=== PATIENT | female | born 1990 | race Caucasian/White ===

== ENCOUNTER 2019-04-25 12:10 | Emergency (ER) | payer BC, MEDICAID ==
[~2019-04-25] VITALS: Ht 175.3 cm; Wt 168.8 kg
[~2019-04-25 12:10] MED LIST: ONDA4TAB10 SL; SULF1TAB24 PO; TRAM-48 PO
[2019-04-25] MEDS ORDERED: IV NORMAL SALINE 1,000ML 1,000 ML IV SCH (12:26)
[2019-04-25] MEDS ORDERED: KETOROLAC 30 MG/ML VIAL. IVP ONE (12:30)
[2019-04-25] MEDS ORDERED: KETOROLAC 30 MG/ML VIAL. ONE (12:31)
--- NOTE | 2019-04-25 12:36 | PHYS DOC ---
Past History Past Medical History: No Pertinent History Past Surgical History: Other Additional Past Surgical Histo: bariactric [id number] 02/2019 Alcohol Use: None Drug Use: None Adult General Chief Complaint Chief Complaint: FLANK PAIN HPI HPI Patient is a 28-year-old female who presents to the emergency department for evaluation. She states that she developed sudden onset of right flank pain about 30 minutes prior to arrival, with some nausea and vomiting. 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 She has no prior history of similar symptoms or history of renal stones. Her LMP was the middle of March and denies possibility of . She has not had any vaginal discharge, dysuria, or urinary frequency or hesitancy. There are no alleviating or exacerbating factors to her symptoms. Review of Systems Review of Systems Constitutional: Denies fever or chills [] Eyes: Denies change in visual acuity, redness, or eye pain [] HENT: Denies nasal congestion or sore throat [] Respiratory: Denies cough or shortness of breath [] Cardiovascular: No additional information not addressed in HPI [] GI: Denies abdominal pain, bloody stools or diarrhea [] : Denies dysuria or vaginal bleeding or discharge. Reports right flank pain and hematuria [] Musculoskeletal: Denies back pain or joint pain [] Integument: Denies rash or skin lesions [] Neurologic: Denies headache, focal weakness or sensory changes [] Endocrine: Denies polyuria or polydipsia [] All other systems were reviewed and found to be within normal limits, except as documented in this note. Current Medications Current Medications Current Medications Medications (Trade) Dose Ordered Sig/Luz Marina Start Time Stop Time Status Last Admin Dose Admin Ketorolac Tromethamine (Toradol 30mg Vial) 30 mg STK-MED ONCE 04/25/19 12:31 04/25/19 12:31 DC Sodium Chloride 1,000 ml @ 1,000 mls/hr Q1H 04/25/19 12:26 04/25/19 13:25 Allergies Allergies Allergies Coded Allergies Type Severity Reaction Last Updated Verified No Known Drug Allergies 04/25/19 No Physical Exam Physical Exam PHYSICAL EXAM: CONSTITUTIONAL: Well developed, well nourished HEAD: normocephalic, atraumatic EENT: PERRL, EOMI. Conjunctivae normal color, sclerae non-icteric; moist mucous membranes. NECK: Supple, non-tender; no meningismus. LUNGS: Lungs CTA, breathing even and unlabored. Normal air movement. HEART: Regular rate and rhythm, no murmur CHEST: No deformity; non-tender ABDOMEN: The abdomen is soft, and non-tender, no masses or bruits. There are well-healed surgical scars present on the abdomen. EXTREM: Normal ROM; no deformity, no calf tenderness. Normal pulses palpable in all extremities. There is no pedal edema. SKIN: No rash; no diaphoresis NEURO: Alert; normal speech and cognition; CN's grossly intact; strength grossly intact without focal deficit. BACK: There is moderate right-sided CVA tenderness to palpation. There is no left-sided CVA TTP. Current Patient Data Vital Signs Vital Signs Date Time Temp Pulse Resp B/P (MAP) Pulse Ox O2 Delivery O2 Flow Rate FiO2 04/25/19 12:20 98.4 112 24 98 Room Air Lab Results Laboratory Tests Test 04/25/19 12:49 White Blood Count 9.1 x10^3/uL Red Blood Count 4.85 x10^6/uL Hemoglobin 14.7 g/dL Hematocrit 43.4 % Mean Corpuscular Volume 90 fL Mean Corpuscular Hemoglobin 30 pg Mean Corpuscular Hemoglobin Concent 34 g/dL Red Cell Distribution Width 14.5 % Platelet Count 252 x10^3/uL Neutrophils (%) (Auto) 69 % Lymphocytes (%) (Auto) 22 % Monocytes (%) (Auto) 7 % Eosinophils (%) (Auto) 1 % Basophils (%) (Auto) 1 % Neutrophils # (Auto) 6.3 x10^3uL Lymphocytes # (Auto) 2.0 x10^3/uL Monocytes # (Auto) 0.7 x10^3/uL Eosinophils # (Auto) 0.1 x10^3/uL Basophils # (Auto) 0.0 x10^3/uL Sodium Level 142 mmol/L Potassium Level 3.1 mmol/L Chloride Level 102 mmol/L Carbon Dioxide Level 24 mmol/L Anion Gap 16 Blood Urea Nitrogen 8 mg/dL Creatinine 0.7 mg/dL Estimated GFR (Cockcroft-Gault) 101.1 BUN/Creatinine Ratio 11 Glucose Level 95 mg/dL Calcium Level 9.3 mg/dL Total Bilirubin 0.6 mg/dL Aspartate Amino Transf (AST/SGOT) 20 U/L Alanine Aminotransferase (ALT/SGPT) 44 U/L Alkaline Phosphatase 83 U/L Total Protein 8.0 g/dL Albumin 3.7 g/dL Albumin/Globulin Ratio 0.9 Serum Test, Qualitative Negative Current Medications Medications (Trade) Dose Ordered Sig/Luz Marina Route PRN Reason Start Time Stop Time Status Last Admin Dose Admin Sodium Chloride 1,000 ml @ 1,000 mls/hr Q1H IV 04/25/19 12:26 04/25/19 13:25 DC 04/25/19 12:57 Ketorolac Tromethamine (Toradol 30mg Vial) 30 mg 1X ONCE IVP 04/25/19 12:30 04/25/19 12:31 DC 04/25/19 13:02 Ketorolac Tromethamine (Toradol 30mg Vial) 30 mg STK-MED ONCE .ROUTE 04/25/19 12:31 04/25/19 12:31 DC Ondansetron HCl (Zofran) 4 mg 1X ONCE IVP 04/25/19 13:15 04/25/19 13:16 DC 04/25/19 13:03 EKG EKG [] Radiology/Procedures Radiology/Procedures PROCEDURE: CT ABDOMEN PELVIS WO CONTRAST EXAM: Abdomen and pelvis CT without intravenous contrast. HISTORY: Right flank pain. Bismark-en-Y 5 days ago. TECHNIQUE: Computed tomographic images of the abdomen and pelvis were obtained without contrast. Multiplanar reformatting was performed. *One or more of the following individualized dose reduction techniques were utilized for this examination: 1. Automated exposure control. 2. Adjustment of the mA and/or kV according to patient size. 3. Use of iterative reconstruction technique. COMPARISON: None. FINDINGS: Evaluation of the lower thorax demonstrates a lobulated hypodense lesion within the right anterior right cardiophrenic angle measuring 6.0 cm. No suspicious hepatic lesion is seen. The gallbladder, pancreas and adrenal glands are unremarkable. There is mild splenomegaly. There are postoperative changes involving the stomach and small bowel consistent with a Bismark-en-Y procedure. There is slight wall thickening and surrounding fatty stranding at the level of the bowel anastomoses, likely due to relative recent postoperative changes. No dehiscence or abscess is seen. There is mild right hydronephrosis and hydroureter extending to a suspected 1 mm stone at the right uterovesical junction. There is suspected faint punctate nontracking stones within the left kidney. There is no appendicitis. There is no bowel obstruction. The bladder is empty. The uterus is unremarkable. There is a suspected dominant right ovarian follicle/follicular cyst measuring 2.0 cm, difficult to measure in the absence of contrast. The aorta is normal in caliber. There is stranding ventral abdominal wall likely due to medication injection sites or laparoscopic port sites. There is no suspicious osseous lesion. IMPRESSION: 1. Mild right hydronephrosis and hydroureter secondary to a 1 mm stone at the ureterovesical junction. There are suspected faint tiny nodularity stones within the left kidney. 2. Findings consistent with recent Bismark-en-Y surgery, with associated suspected mild postoperative wall edema and surrounding fatty stranding at the anastomotic sites. No obstruction, dehiscence or abscess is seen. 3. Mild splenomegaly. This is likely within normal limits for body habitus. 4. Suspected 2.0 cm dominant right ovarian follicle/follicular cyst. 5. 6.0 cm hypodense lesion within the anterior right cardiophrenic angle, the location of which favors a pericardial cyst. The attenuation of this lesion is slightly greater than simple fluid. Correlate with prior studies recommended confirm stability.[] Course & Med Decision Making Course & Med Decision Making Pertinent Labs and Imaging studies reviewed. (See chart for details) [] 2:30 PM: The patient's condition remains stable. I discussed test results with the patient including the incidental findings on the CT and the need for outpatient follow-up of the same, the need for outpatient urology follow-up, and return precautions. Patient's urinalysis is currently pending. If negative for infection she'll be released, is positive for infection she will be instructed to take the antibiotics her surgeon prescribed as instructed. 3:15 PM: Given the patient's recent gastric bypass, her Toradol be changed to Tylenol No. 3. I have asked the patient to check with her gastric surgeon, for initiating a course of Toradol. Dragon Disclaimer Dragon Disclaimer This electronic medical record was generated, in whole or in part, using a voice recognition dictation system. Departure Departure: Impression: Primary Impression: Kidney stone Disposition: 01 HOME, SELF-CARE Condition: STABLE Referrals: EFFIE PALACIOS JR, MD (PCP) Patient Instructions: Diet for Kidney Stones, Kidney Stones Scripts Acetaminophen With Codeine (TYLENOL WITH CODEINE #3 TABLET) 1 Each Tablet 1 TAB PO PRN Q6HRS PRN for pain MDD 4 Tablet(s) for 7 Days, #28 TAB 0 Refills Prov: ABDULKADIR SANFORD MD 04/25/19 Ondansetron (ONDANSETRON ODT) 4 Mg Tab.rapdis 1 TAB PO PRN Q6-8HRS for N/V, #16 TAB Prov: ABDULKADIR SANFORD MD 04/25/19 [toradol] No Conflict Check 10 MG PO Q8H PRN for PAIN, #20 Prov: ABDULKADIR SANFORD MD 04/25/19 [chelsey] No Conflict Check Prov: ABDULKADIR SANFORD MD 04/25/19 Tamsulosin Hcl (FLOMAX) 0.4 Mg Cap.er.24h 1 CAP PO DAILY for Kidney Stone, #15 CAP 0 Refills Prov: ABDULKADIR SANFORD MD 04/25/19 ABDULKADIR SANFORD MD Apr 25, 2019 12:36
[2019-04-25 13:06] LABS: BASO % 1 % (0-3); EOS # 0.1 x10^3/uL (0.0-0.7); EOS % 1 % (0-3); HEMATOCRIT 43.4 % (36.0-47.0); HEMOGLOBIN 14.7 g/dL (12.0-15.5); LYMPH % 22 % (24-48); MEAN CORPUSCULAR HEMOGLOBIN 30 pg (25-35); MEAN CORPUSCULAR HGB CONC 34 g/dL (31-37); MEAN CORPUSCULAR VOLUME 90 fL (79-100); MONO # 0.7 x10^3/uL (0.0-1.1); MONO % 7 % (0-9); NEUT # 6.3 x10^3uL (1.8-7.7); NEUT % 69 % (31-73); PLATELET COUNT 252 x10^3/uL (140-400); RED BLOOD COUNT 4.85 x10^6/uL (3.50-5.40); RED CELL DISTRIBUTION WIDTH 14.5 % (11.5-14.5); WHITE BLOOD COUNT 9.1 x10^3/uL (4.0-11.0)
[2019-04-25] MEDS ORDERED: ONDANSETRON PF 4 MG/2 ML VIAL. IVP ONE (13:15)
[2019-04-25 13:16] LABS: PREG TEST PT QUAL NEGATIVE (NEG)
[2019-04-25 13:17] LABS: ALBUMIN 3.7 g/dL (3.4-5.0); ALBUMIN/GLOBULIN RATIO 0.9 (1.0-1.7); CALCIUM 9.3 mg/dL (8.5-10.1); CREATININE 0.7 mg/dL (0.6-1.0); GFR 101.1; POTASSIUM 3.1 mmol/L (3.5-5.1); TOTAL BILIRUBIN 0.6 mg/dL (0.2-1.0)
--- NOTE | 2019-04-25 13:58 | RAD ---
EXAM: Abdomen and pelvis CT without intravenous contrast. HISTORY: Right flank pain. Bismark-en-Y 5 days ago. TECHNIQUE: Computed tomographic images of the abdomen and pelvis were obtained without contrast. Multiplanar reformatting was performed. *One or more of the following individualized dose reduction techniques were utilized for this examination: 1. Automated exposure control. 2. Adjustment of the mA and/or kV according to patient size. 3. Use of iterative reconstruction technique. COMPARISON: None. FINDINGS: Evaluation of the lower thorax demonstrates a lobulated hypodense lesion within the right anterior right cardiophrenic angle measuring 6.0 cm. No suspicious hepatic lesion is seen. The gallbladder, pancreas and adrenal glands are unremarkable. There is mild splenomegaly. There are postoperative changes involving the stomach and small bowel consistent with a Bismark-en-Y procedure. There is slight wall thickening and surrounding fatty stranding at the level of the bowel anastomoses, likely due to relative recent postoperative changes. No dehiscence or abscess is seen. There is mild right hydronephrosis and hydroureter extending to a suspected 1 mm stone at the right uterovesical junction. There is suspected faint punctate nontracking stones within the left kidney. There is no appendicitis. There is no bowel obstruction. The bladder is empty. The uterus is unremarkable. There is a suspected dominant right ovarian follicle/follicular cyst measuring 2.0 cm, difficult to measure in the absence of contrast. The aorta is normal in caliber. There is stranding ventral abdominal wall likely due to medication injection sites or laparoscopic port sites. There is no suspicious osseous lesion. IMPRESSION: 1. Mild right hydronephrosis and hydroureter secondary to a 1 mm stone at the ureterovesical junction. There are suspected faint tiny nodularity stones within the left kidney. 2. Findings consistent with recent Bismark-en-Y surgery, with associated suspected mild postoperative wall edema and surrounding fatty stranding at the anastomotic sites. No obstruction, dehiscence or abscess is seen. 3. Mild splenomegaly. This is likely within normal limits for body habitus. 4. Suspected 2.0 cm dominant right ovarian follicle/follicular cyst. 5. 6.0 cm hypodense lesion within the anterior right cardiophrenic angle, the location of which favors a pericardial cyst. The attenuation of this lesion is slightly greater than simple fluid. Correlate with prior studies recommended confirm stability. Electronically signed by: Ju Forbes MD (04/25/2019 1:55 PM) [id number]
[2019-04-25] MEDS ORDERED: TORA (14:38)
[2019-04-25] MEDS ORDERED: ONDA4TAB12 PO (14:38)
[2019-04-25] MEDS ORDERED: TAMS0.4C97 PO (14:38)
[2019-04-25] MEDS ORDERED: toradol PO (14:38)
[2019-04-25] MEDS ORDERED: MORPHINE SULFATE 4 MG/ML DISP.SYRIN. IV ONE (14:45)
[2019-04-25 14:55] LABS: CLARITY,URINE TURBID; COLOR,URINE RED
[2019-04-25 14:56] LABS: BILIRUBIN,URINE NEG (NEG)
[2019-04-25 14:57] LABS: BACTERIA,URINE FEW /HPF (0-FEW); RBC,URINE TNTC /HPF (0-2); SQUAMOUS EPITHELIAL CELL,UR FEW /LPF; WBC,URINE RARE /HPF (0-4)
[2019-04-25] MEDS ORDERED: ACET-704 PO (15:16)
[2019-04-25 15:20] VITALS: BP 112/76
== END 2019-04-25 15:20 | disposition home or self-care (01) ==
LOC: ER 12:10
DX: N13.2 Hydronephrosis with renal and ureteral calculous obstruction (principal); R11.2 Nausea with vomiting, unspecified
CPT/HCPCS: 36415; 74176; 80053; 81001; 84703; 85025; 96361; 96374; 96375; 99285; J1885; J2270; J2405; J7030